=== PATIENT | female | born 1990 | race Caucasian/White ===

== ENCOUNTER → 2018-03-17 14:59 | Outpatient (CLI) | payer MEDICAID ==
[2013-11-07 15:06] VITALS: BMI 27.0
[~2018-03-17 14:59] MED LIST: IBUPROFEN600 MG PO; PERCOCET 5-3251 TAB PO; PRENATAL COMPLE1 TAB PO
== END | disposition home or self-care (01) ==
LOC: D.US 14:59
DX: N64.4 Mastodynia (principal)

== ENCOUNTER → 2018-05-12 14:35 | Outpatient (CLI) | payer MEDICAID ==
[2013-11-07 15:06] VITALS: BMI 27.0
== END | disposition home or self-care (01) ==
LOC: D.HCCARDIO 14:35
DX: I20.9 Angina pectoris, unspecified (principal)